=== PATIENT | female | born 1990 | race Caucasian/White ===

== ENCOUNTER 2017-06-20 16:01 | Inpatient (IN) | payer OTHER ==
[2017-06-20] VITALS (27 sets, daily range): BP systolic 100–168; BP diastolic 62–119; PULSE 61–112; TEMP 97.2–98.9
[~2017-06-20] VITALS: Ht 165.2 cm; Wt 173.0 kg
[2017-06-20] MEDS ORDERED: PRENATAL1 TA7 PO (16:23)
[2017-06-20 16:47] LABS: BASO % 0.3 % (0.0-2.0); EOS % 0.3 % (0-4.0); GRAN # 5.9 (1.4-6.5); GRAN % 67.7 % (42.2-75.2); HEMATOCRIT 35.2 % (37.0-47.0); HEMOGLOBIN 12.6 g/dl (12.5-16.0); LYMPH % 22.9 % (20.0-51.0); MEAN CELL VOLUME 91 fl (80.0-100.0); MEAN CORPUSCULAR HEMOGLOBIN 33 pg (27.0-31.0); MEAN CORPUSCULAR HGB CONC 36 g/dl (33.0-37.0); MEAN PLATELET VOLUME 10.8 fl (7.4-10.4); MONO # 0.7 (0.1-0.6); MONO % 8.5 % (1.7-9.3); PLATELET COUNT 216 K/mm3 (130-400); RED BLOOD COUNT 3.87 M/mm3 (4.10-5.30); REDCELL DISTRIBUTION WIDTH-CV 12.4 % (11.5-14.5)
[2017-06-20 17:01] LABS: COLLECTION METHOD CLEAN CATCH
[2017-06-20 17:13] LABS: MUCOUS Present /lpf; PH 6 (5-8); SQUAMOUS EPITHELIAL 0-2 /hpf; URINE APPEARANCE Clear; URINE BACTERIA Rare /hpf; URINE BILIRUBIN Negative (NEGATIVE); URINE BLOOD Negative (NEGATIVE); URINE COLOR Yellow; URINE GLUCOSE Negative (NEGATIVE); URINE KETONE Negative (NEGATIVE); URINE LEUKOCYTE ESTERASE Negative (NEGATIVE); URINE NITRATE Negative (NEGATIVE); URINE PROTEIN(semi-quant) 3+ (NEGATIVE); URINE RBC 0-2 /hpf; URINE UROBILINOGEN Negative (NEGATIVE); URINE WBC 0-2 /hpf
[2017-06-20 17:15] LABS: ALBUMIN 2.9 gm/dL (3.5-5.0); BILIRUBIN,TOTAL 0.2 mg/dL (0.0-1.0); CALCIUM 8.5 mg/dL (8.4-10.2); CREATININE, serum 0.85 mg/dL (0.52-1.25); POTASSIUM 4.2 mmol/L (3.4-5.0); TOTAL PROTEIN 5.9 gm/dL (6.4-8.2); URIC ACID 8.5 mg/dL (2.5-6.2)
[2017-06-21] VITALS (43 sets, daily range): BP systolic 114–161; BP diastolic 16–108; PULSE 59–90; TEMP 97.5–98.4
[2017-06-21 07:38] LABS: BASO % 0.3 % (0.0-2.0); GRAN # 10.4 (1.4-6.5); GRAN % 77.9 % (42.2-75.2); MEAN CELL VOLUME 93 fl (80.0-100.0); MEAN CORPUSCULAR HGB CONC 35 g/dl (33.0-37.0); MEAN PLATELET VOLUME 10.6 fl (7.4-10.4); MONO # 0.9 (0.1-0.6); MONO % 6.4 % (1.7-9.3); PLATELET COUNT 173 K/mm3 (130-400); RED BLOOD COUNT 3.51 M/mm3 (4.10-5.30); REDCELL DISTRIBUTION WIDTH-CV 12.5 % (11.5-14.5)
[2017-06-21 07:39] LABS: HEMATOCRIT 32.8 % (37.0-47.0); HEMOGLOBIN 11.5 g/dl (12.5-16.0); MEAN CORPUSCULAR HEMOGLOBIN 33 pg (27.0-31.0)
[2017-06-21 07:58] LABS: ALBUMIN 2.6 gm/dL (3.5-5.0); BILIRUBIN,TOTAL 0.2 mg/dL (0.0-1.0); CALCIUM 6.9 mg/dL (8.4-10.2); CREATININE, serum 0.91 mg/dL (0.52-1.25); POTASSIUM 4.4 mmol/L (3.4-5.0); TOTAL PROTEIN 5.3 gm/dL (6.4-8.2)
[2017-06-22 02:30] VITALS: BP 125/81; PULSE 94; TEMP 97.9
[2017-06-22 08:02] LABS: BASO % 0.3 % (0.0-2.0); EOS # 0.1 (0.0-0.7); EOS % 0.8 % (0-4.0); GRAN # 7.9 (1.4-6.5); GRAN % 72.6 % (42.2-75.2); HEMATOCRIT 38.4 % (37.0-47.0); HEMOGLOBIN 13.2 g/dl (12.5-16.0); LYMPH # 2.2 (1.2-3.4); LYMPH % 19.9 % (20.0-51.0); MEAN CELL VOLUME 95 fl (80.0-100.0); MEAN CORPUSCULAR HEMOGLOBIN 33 pg (27.0-31.0); MEAN CORPUSCULAR HGB CONC 34 g/dl (33.0-37.0); MEAN PLATELET VOLUME 9.8 fl (7.4-10.4); MONO # 0.7 (0.1-0.6); PLATELET COUNT 183 K/mm3 (130-400); RED BLOOD COUNT 4.04 M/mm3 (4.10-5.30)
[2017-06-22 08:07] LABS: BILIRUBIN,TOTAL 0.2 mg/dL (0.0-1.0); CALCIUM 7.5 mg/dL (8.4-10.2); CREATININE, serum 0.89 mg/dL (0.52-1.25); POTASSIUM 4.3 mmol/L (3.4-5.0); TOTAL PROTEIN 6.1 gm/dL (6.4-8.2)
[2017-06-22 08:40] VITALS: BP 160/98; PULSE 82; TEMP 98.2
[2017-06-22 12:15] VITALS: BP 150/90; PULSE 88; TEMP 98
[2017-06-22 20:30] VITALS: BP 147/94; PULSE 103; TEMP 98.8
[2017-06-23 06:59] VITALS: BP 144/99; PULSE 100; TEMP 97.5
[2017-06-23 08:00] VITALS: BP 149/95
[2017-06-23 10:16] VITALS: BP 166/100
[2017-06-23 11:29] VITALS: BP 144/98
[2017-06-23 16:24] VITALS: BP 140/92; PULSE 100; TEMP 98.4
[2017-06-23 19:30] VITALS: BP 150/90; PULSE 65; TEMP 97.6
[2017-06-24 00:30] VITALS: BP 133/84; PULSE 65
[2017-06-24 08:00] VITALS: BP 141/99; PULSE 116; TEMP 97.9
[2017-06-24] MEDS ORDERED: IBU600 MG PO (10:27)
[2017-06-24] MEDS ORDERED: NORMODYNE200 MG PO (10:27)
[2017-06-24] MEDS ORDERED: PROCARDIA XL 6060 MG PO (10:27)
[2017-06-24] MEDS ORDERED: PERCOCET 325 MG1 TA2 PO (10:28)
== END 2017-06-24 11:20 | disposition home or self-care (01) | DRG 765 ==
LOC: LDRO 16:01 → LDR 17:35 → OB 06-21 21:30
PROVIDERS: Obstetrics & Gynecology
PROC: 10D00Z1 Extraction of Products of Conception, Low, Open Approach (ICD-10-PCS; principal; 2017-06-20)
DX: O14.14 Severe pre-eclampsia complicating childbirth (principal); O36.0130 Maternal care for anti-D [Rh] antibodies, third trimester, not applicable or unspecified; O32.1XX0 Maternal care for breech presentation, not applicable or unspecified; Z3A.36 36 weeks gestation of pregnancy; Z37.0 Single live birth
CPT/HCPCS: J0690; J1885; J2270; J2370; J2405; J2590; J3010; J3475; J7120